=== PATIENT | female | born 1990 | race Caucasian/White ===

== ENCOUNTER 2016-10-01 10:25 | Emergency (ER) | payer OTHER ==
[~2016-10-01] VITALS: Ht 165.1 cm; Wt 64.9 kg
[2016-10-01] MEDS ORDERED: PHENERGAN25 MG PR (13:53)
[2016-10-01] MEDS ORDERED: FIORICET 50-301 EACH PO (13:53)
[2016-10-01] MEDS ORDERED: PROMETHAZINE HC25 M1 PO (13:53)
[2016-10-01] MEDS ORDERED: ANTIVERT25 MG PO (13:53)
[2016-10-01] MEDS ORDERED: MOTRIN800 MG PO (13:53)
[2016-10-01 13:54] LABS: ADD MIUA? YES; BILIRUBIN NEGATIVE; BLOOD LARGE; COLOR YELLOW ((YELLOW)); GLUCOSE (STRIP) NEGATIVE; KETONES NEGATIVE; LEUKOCYTES MODERATE; NITRITE POSITIVE; PROTEIN (STRIP) 30; SPECIFIC GRAVITY 1.013 (1.000-1.030); UROBILINOGEN 0.2 MG/DL (0.2-1.0)
[2016-10-01 13:55] VITALS: BP 120/75
[2016-10-01 14:20] LABS: BACTERIA RARE /HPF; CALCIUM OXALATE CRYSTALS 1+ /HPF; EPITHELIAL CELLS RARE /HPF; MUCUS TRACE /LPF; RED BLOOD CELLS 20-30 /HPF (0-5); WHITE BLOOD CELLS TNTC /HPF (0-5)
== END 2016-10-01 14:01 | disposition home or self-care (01) ==
LOC: EME 10:25
PROVIDERS: Physician Assistant
DX: S09.90XA Unspecified injury of head, initial encounter (principal); S06.0X0A Concussion without loss of consciousness, initial encounter; Y09 Assault by unspecified means; Z72.0 Tobacco use
CPT/HCPCS: 70450; 81003; 99281; 99285; J1200; J1885; J2765; J7030